=== PATIENT | female | born 1960 | race Caucasian/White ===

== ENCOUNTER 2016-09-28 05:36 | Inpatient (IN) | payer OTHER ==
[2016-09-28] VITALS (30 sets, daily range): BP systolic 98–176; BP diastolic 48–86; PULSE 57–90; RESP 14–20; TEMP 96.2–98.5; O2SAT 74–100; Ht 154.3 cm; Wt 111.1 kg
[~2016-09-28] VITALS: Ht 154.3 cm; Wt 111.1 kg
[~2016-09-28 05:36] MED LIST: CHOL50006 PO; HYDR25TA PO; IRBE300T40 PO; METO50TA5 PO; MULT-1063 PO; NAPR220C11 PO; OMEP40CA52 PO; SENN1TAB79 PO; TOLT4CAP PO; TRAM50TA4 PO
--- OUTSIDE RECORDS SUMMARY | 2016-09-28 05:41 | XMS REPORT | Continuity of Care Document ---
Author Author [facility] Organization [facility] Address Unknown Phone Unavailable Support Name Relationship Address Phone SANDIE ZHOU MD Caregiver [address] [place] [address] Unavailable SANDIE ZHOU MD Caregiver [address] [place] [address] Unavailable SHUKRI YOUNG DO Caregiver [address] [place] [address] Unavailable VENKAT CARPIO Next Of Kin [address] [facility] [place], [place] [id number] Insurance Providers Guarantor Julieth Carpio Address [address] [place] [address] Email [email or web address] Payer [employer] Policy Number [id number] Subscriber's Name Venkat Carpio Relationship 01 Spouse Group Number [id number] Advance Directives Directive Response Recorded Date/Time Ordered Resuscitation Status Full Code 05/10/16 5:11pm Resuscitation Documents on File No 05/11/16 10:19am DPOA for Healthcare Only No 05/11/16 10:19am Living Will No 05/11/16 10:19am Problems Active Problems Medical Problem Onset Date Status Avascular necrosis of bone of right hip Unknown Degenerative arthritis of hip Unknown Degenerative arthritis of right knee Unknown Chronic Past Problems Medical Problem Onset Date Nausea & vomiting Unknown Medications Current Home Medications Medication Dose Units Route Directions Days Qty Instructions Start Date Acetaminophen (Tylenol) 325 Mg Tablet 650 Mg Oral Four Times Daily 100 Tablet 05/12/16 Aspirin (Aspirin Ec) 325 Mg Tablet. 325 Mg Oral Twice A Day 84 Tablet 05/12/16 Cholecalciferol (Vitamin D3) 5,000 Unit Capsule 5,000 Unit Oral Daily 06/10/15 Hydrochlorothiazide 25 Mg Tablet 25 Mg Oral Give With Breakfast 06/10/15 Irbesartan (Avapro) 300 Mg Tablet 300 Mg Oral Daily 11/26/15 Metoprolol Tartrate 50 Mg Tablet 50 Mg Oral Daily 11/26/15 Multivitamin (One Daily Multivitamin) 1 Each Tablet 1 Tab Oral Daily 06/10/15 Omeprazole 40 Mg Capsule.dr 40 Mg Oral Twice A Day 06/10/15 Oxycodone Hcl 5 Mg Tablet 5-15 Mg Oral Every 3 Hours as needed for Breakthrough Pain 60 Tablet 05/12/16 Polyethylene Glycol 3350 (Healthylax) 17 Gm Powd.pack 17 Gm Oral Daily 30 Packet 05/12/16 Past Home Medications Medication Directions Ordered Status Acetaminophen 325 Mg Tablet, 650 Mg Oral Four Times Daily as needed for Pain 05/03/16 Discontinued Acetaminophen (Tylenol Extra Strength) 500 Mg Tablet, 1-2 Tab Oral Every 6 Hours as needed for Pain 11/26/15 Discontinued Acetaminophen (Arthritis Pain Relief) 650 Mg Tablet.er, 650 Mg Oral Twice A Day 06/10/15 Discontinued Aspirin 81 Mg Tab.chew, 81 Mg Oral Daily 05/03/16 Discontinued Oxycodone Hcl 5 Mg Tablet, 5-10 Mg Oral Every 4 Hours for Pain 05/03/16 Discontinued Tramadol Hcl (Ultram) 50 Mg Tablet, 50-100 Mg Oral Every 4 Hours as needed for Pain 12/17/15 Discontinued Social History Social History Problem Response Recorded Date/Time Onset Date Status Reason for Hospitalization Right ALEXUS 05/12/2016 2:31pm Not Applicable Not Applicable Chewing Tobacco Status No 05/11/2016 10:30am Not Applicable Not Applicable Hx Substance Use No 05/11/2016 10:30am Not Applicable Not Applicable Hx Alcohol Use Y weekly 05/11/2016 10:30am Not Applicable Not Applicable Has the pt used tobacco in the last 12 months No 05/11/2016 10:30am Not Applicable Not Applicable Query Response Start Date Stop Date Smoking Status Never smoker Hospital Discharge Instructions Instructions: Care Instructions: Reason for Hospitalization: Right ALEXUS I was in the hospital because (patient own words): GETTING A NEW HIP Discharge Diet: Resume normal diet as tolerated Discharge Activity: Continue the exercises you were given in the hospital three times a day. Your therapist will provide you with a home therapy program prior to your hospital discharge. As you feel stronger, increase the number of repetitions you do in each session. Please check with us before you swim, use a whirlpool, drive or ride a bicycle. Follow Up Appointments: Follow up as scheduled Pending Lab / Results: No Pending Lab Patient Instructions: Driving may be resumed once you are no longer taking narcotic medications and feel you can safely operate the vehicle. You may wish to practice in an empty parking lot at first. Keep in mind that your reaction time will be delayed for up to 6 weeks after surgery. Contact your surgeon for antibiotics to take before having dental work. Wound/Incision Care: In most cases, a Mepilex dressing will be placed at the time of surgery. This dressing will not need to be covered while showering. Leave dressing in place until your follow-up appointment as long as it remains clean, dry and stuck down well around the edges. Call your Doctor if you encounter a problem with your dressing. Please avoid submerging your incision until it is completely healed, once the Mepilex dressing is removed. This includes bathtubs, swimming pools, and hot tubs. DO NOT USE ALCOHOL, PEROXIDE, OR OINTMENTS of any kind on your incision. Pain Scale Utilized to Educate Patient: 0-10 Pain Scale Pain Management/Treatment: Ice packs may be used, and will also help with the pain. You will be given a prescription for pain. Expected Signs/Symptoms: Some swelling around the incision, as well as in your feet and legs is normal. To help with this, elevate your feet on a footstool when sitting in a chair, and do the ankle pumps and circles whenever you are sitting still. Muscle action helps to move collected fluid out of the tissues and improve circulation. Ice packs may be used, and will also help with the pain. Report any persistent swelling, calf tenderness, increase in pain, or pain in the calf with warmth, or redness to your doctor. Notify Physician If: Report any complications to my office immmediately. This includes excessive bleeding, wound breakdown, redness around the wound, uncontrolled pain, or fever over 101 on 3 different measurements. Eat a balanced diet and get plenty of rest. During Business Hours:: If you have any questions or concerns, please call during regular office hours ([phone]). After Business Hours:: If you have any problems or need to reach a physician after hours or on the weekend please call the hospital's main number [phone] to have your physician paged. Condition at time of discharge: Good Plan of Care Discharge Date 05/12/16 3:05pm Disposition 01 DISCHARGED HOME, SELF-CARE Instructions/Education Provided [facility] Postop Instructions YOUSIF Zhou General Instructions Prescriptions See Medication Section Additional Instructions/Education FOLLOW UP WITH DR ZHOU 12-7- @ 10:45AM [facility] ON 05-14-2016 AT 11:20AM FOR PHYSICAL THERAPY EVAL. PHONE Care Plan and Goals See Discharge Instructions Section Functional Status Query Response Date Recorded Mobility Status Ambulatory w/assist May 12, 2016 2:31pm Assistive Devices Front Wheeled Walker May 12, 2016 2:31pm Activity Limitations Weakness Pain May 12, 2016 2:31pm Feeding Ability Independent May 12, 2016 2:31pm Toileting Ability Independent May 12, 2016 2:31pm Grooming Ability Independent May 12, 2016 2:31pm Dressing Ability Independent May 12, 2016 2:31pm Driving Ability Dependent May 12, 2016 2:31pm Housework Ability Assist May 12, 2016 2:31pm Meal Preparation Ability Assist May 12, 2016 2:31pm Stair Climbing Ability Assist May 12, 2016 2:31pm Ability to complete ADL's impeded by No change May 12, 2016 2:31pm Cognitive/Perceptual Impairments Impaired vision May 12, 2016 2:31pm Visual Assistive Devices Glasses May 11, 2016 6:50pm Allergies, Adverse Reactions, Alerts Allergen Type Severity Reaction Status Last Updated Tetracycline Allergy Mild RASH Active 10/14/08 Erythromycin base Allergy Mild RASH Active 10/14/08 Immunizations Query Response on File Recorded Date/Time Hx Influenza Vaccination Y 04-21-16 05/11/16 10:30am Hx Pneumococcal Vaccination No 05/11/16 10:30am Hx Influenza Vaccination Y 04-21-16 05/11/16 10:30am Influenza Vaccine Hx 2015 05/12/16 2:35pm Vital Signs Acute Vital Signs Vital Response Date/Time Temperature (Fahrenheit) 97.0 deg F (96.8 - 99.1) 05/12/2016 12:15pm Temperature (Calculated Celsius) 36.58933 degrees C (36.0 - 37.3) 05/12/2016 12:15pm Temperature Source Oral 05/11/2016 8:45pm Pulse Rate (adult) 90 bpm (60 - 100) 05/12/2016 12:15pm Respiratory Rate 20 breaths/min (10 - 20) 05/12/2016 12:15pm O2 Sat by Pulse Oximetry 91 % (90 - 100) 05/12/2016 12:15pm Oxygen Delivery Method Room Air 05/11/2016 8:45pm Oxygen Delivery Method Room Air 05/12/2016 12:15pm Oxygen Flow Rate 2.00 L/min 05/11/2016 4:50pm Fraction of Inspired Oxygen (FIO2) 21 % 05/11/2016 8:14pm Blood Pressure 124/64 mm Hg 05/12/2016 12:15pm Blood Pressure Source Automatic Cuff 05/12/2016 12:15pm Height (Feet) 5 feet 05/11/2016 9:59am Height (Inches) 5.50 inches 05/11/2016 9:59am Weight (Kilograms) 107.400 kg 05/11/2016 9:59am Body Mass Index (BMI) 38.8 05/11/2016 9:59am Results Laboratory Results Test Name Result Units Flags Reference Collection Date/Time Result Date/ Time Comments White Blood Count 6.7 T/MM3 4.5-11.0 05/12/2016 4:54am 05/12/2016 6: 36am Red Blood Count 3.97 M/MM3 L 4.00-5.20 05/12/2016 4:54am 05/12/2016 6: 36am Hemoglobin 11.1 GM/DL L 12-16 05/12/2016 4:54am 05/12/2016 6:36am Hematocrit 34.1 % L 36-46 05/12/2016 4:54am 05/12/2016 6:36am Mean Corpuscular Volume 85.9 UM3 80-100 05/12/2016 4:54am 05/12/2016 6: 36am Mean Corpuscular Hemoglobin 28.0 UUG 26-34 05/12/2016 4:54am 2015 6:36am Mean Corpuscular Hemoglobin Concent 32.6 GM/DL 31-37 05/12/2016 4:54am 05/12/2016 6:36am RDW Standard Deviation 45.1 FL 36.9-50.2 05/12/2016 4:54am 05/12/2016 6 :36am Platelet Count 194 T/MM3 D 130-400 05/12/2016 4:54am 05/12/2016 6:37am Mean Platelet Volume 9.7 UM3 9.4-12.4 05/12/2016 4:54am 05/12/2016 6: 36am Icterus Index < 2 0-7 05/12/2016 4:54am 05/12/2016 5:39am Chemistry Specimen Hemolysis 76 H 0-25 05/12/2016 4:54am 05/12/2016 5: 39am 71-285: Specimen Exhibited Moderate Hemolysis - can falsely elevate K (Potassium), Troponin I, CA 19-9, PTH, CSF Glucose, Urine Protein, and can falsely decrease Phenytoin. Turbidity < 20 0-20 05/12/2016 4:54am 05/12/2016 5:39am Sodium Level 139 MEQ/L 134-144 05/12/2016 4:54am 05/12/2016 5:39am Potassium Level 4.7 MEQ/L 3.6-5 05/12/2016 4:54am 05/12/2016 5:39am Chloride Level 104 MEQ/L 98-107 05/12/2016 4:54am 05/12/2016 5:39am Carbon Dioxide Level 24 MEQ/L 22-30 05/12/2016 4:54am 05/12/2016 5: 39am Anion Gap 11 MEQ/L 5-15 05/12/2016 4:54am 05/12/2016 5:39am Blood Urea Nitrogen 19.0 MG/DL H 7-17 05/12/2016 4:54am 05/12/2016 5: 39am Creatinine 0.7 MG/DL 0.7-1.2 05/12/2016 4:54am 05/12/2016 5:39am BUN/Creatinine Ratio 27 RATIO H 6-26 05/12/2016 4:54am 05/12/2016 5: 39am Glomerular Filtration Rate Calc 86 05/12/2016 4:54am 05/12/2016 5: 39am Glucose Level 113 MG/DL H 65-110 05/12/2016 4:54am 05/12/2016 5:39am Calculated Osmolality 271 MOSM/KG 261-280 05/12/2016 4:54am 05/12/2016 5:39am Calcium Level 8.9 MG/DL 8.4-10.2 05/12/2016 4:54am 05/12/2016 5:39am Neutrophils (%) (Auto) 63.6 % 33-66 05/03/2016 4:20pm 05/03/2016 4: 25pm Lymphocytes (%) (Auto) 31.6 % 23-45 05/03/2016 4:20pm 05/03/2016 4: 25pm Monocytes (%) (Auto) 4.1 % 0-9.0 05/03/2016 4:20pm 05/03/2016 4:25pm Eosinophils (%) (Auto) 0.2 % 0-4 05/03/2016 4:20pm 05/03/2016 4:25pm Basophils (%) (Auto) 0.0 % 0-2 05/03/2016 4:20pm 05/03/2016 4:25pm Immature Granulocyte % (Auto) 0.5 % 0.0-0.5 05/03/2016 4:20pm 2015 4:25pm Absolute Neutrophils (auto) 2.6 T/MM3 1.8-7.7 05/03/2016 4:20pm 2015 4:25pm Absolute Lymphocytes (auto) 1.3 T/MM3 1-4.8 05/03/2016 4:20pm 2015 4:25pm Absolute Monocytes (auto) 0.2 T/MM3 0-0.8 05/03/2016 4:20pm 05/03/2016 4:25pm Absolute Eosinophils (auto) 0.0 T/MM3 0-0.5 05/03/2016 4:20pm 2015 4:25pm Absolute Basophils (auto) 0.0 T/MM3 0-0.2 05/03/2016 4:20pm 05/03/2016 4:25pm Absolute Immature Granulocyte (auto 0.02 T/MM3 0.00-0.03 05/03/2016 4: 20pm 05/03/2016 4:25pm D-Dimer 721 NG/ML H 0-230 05/03/2016 4:20pm 05/03/2016 6:05pm <230 NG/ ML D-DU=PRESUMPTIVE NEGATIVE FOR PE OR DVT >230 NG/ML D-DU=ADDITIONAL EVAL FOR PE OR DVT RECOMMENDED Total Bilirubin 1.40 MG/DL H 0.20-1.30 05/03/2016 4:20pm 05/03/2016 5: 13pm Alkaline Phosphatase 154 U/L H 38-126 05/03/2016 4:20pm 05/03/2016 5: 13pm Total Protein 8.1 G/DL 6.3-8.2 05/03/2016 4:20pm 05/03/2016 5:13pm Albumin 5.0 G/DL 3.5-5.0 05/03/2016 4:20pm 05/03/2016 5:13pm Globulin 3.1 G/DL 2.4-3.6 05/03/2016 4:20pm 05/03/2016 5:13pm Albumin/Globulin Ratio 1.6 RATIO 1.1-2.2 05/03/2016 4:20pm 05/03/2016 5 :13pm Aspartate Amino Transf (AST/SGOT) 41 U/L H 14-36 05/03/2016 4:20pm 05/03 5:13pm Alanine Aminotransferase (ALT/SGPT) 44 U/L 9-52 05/03/2016 4:20pm 05/03 5:13pm Troponin I < 0.012 ng/ml 0-0.12 05/03/2016 4:20pm 05/03/2016 5:25pm Troponin values with a difference of 55% increase from orginal troponin value represent a true biological DELTA value. (%increase Calc=Orginal Troponin value, divided by subsequent Troponin value, multiplied by 100) Lipase 104 U/L 23-300 05/03/2016 4:20pm 05/03/2016 5:13pm Urine Collection Type CLEANCATCH-MIDSTREAM 05/03/2016 6:31pm 2015 6:35pm Urine Color YELLOW YELLOW 05/03/2016 6:31pm 05/03/2016 6:35pm Urine Turbidity CLEAR CLEAR 05/03/2016 6:31pm 05/03/2016 6:35pm Urine Specific Tobias 1.025 1.015-1.025 05/03/2016 6:31pm 2015 6:35pm Urine pH 7.0 5.0-8.0 05/03/2016 6:31pm 05/03/2016 6:35pm Urine Leukocyte Esterase 1+ A NEGATIVE 05/03/2016 6:31pm 05/03/2016 6: 35pm Urine Nitrite NEGATIVE NEGATIVE 05/03/2016 6:31pm 05/03/2016 6:35pm Urine Protein NEGATIVE NEGATIVE 05/03/2016 6:31pm 05/03/2016 6:35pm Urine Glucose (UA) NEGATIVE NEGATIVE 05/03/2016 6:31pm 05/03/2016 6: 35pm Urine Ketones TRACE A NEGATIVE 05/03/2016 6:31pm 05/03/2016 6:35pm Urine Urobilinogen 0.2 EU/DL NORMAL 05/03/2016 6:31pm 05/03/2016 6: 35pm Urine Bilirubin NEGATIVE NEGATIVE 05/03/2016 6:31pm 05/03/2016 6: 35pm Urine Blood NEGATIVE NEGATIVE 05/03/2016 6:31pm 05/03/2016 6:35pm Urine WBC 1-3 /HPF 0-5 05/03/2016 6:31pm 05/03/2016 6:54pm Urine RBC 0-1 /HPF 0-3 05/03/2016 6:31pm 05/03/2016 6:54pm Urine Squamous Epithelial Cells 0-5 05/03/2016 6:31pm 05/03/2016 6: 54pm Urine Bacteria TRACE H NEGATIVE 05/03/2016 6:31pm 05/03/2016 6:54pm Urine Mucus PRESENT 05/03/2016 6:31pm 05/03/2016 6:54pm Urine Culture Indicated CULT NOT INDICATED 05/03/2016 6:31pm 2015 6:54pm Name: JULIETH CARPIO Unit #: [id number] : 1960 Sex: F Admit Date: 05/11/16 Loc / Svc: SRG Discharge Date: DIAGNOSTIC IMAGING REPORT Report #: [id number] [facility] CARIDAD Gomez Indication: ITS.REASON: POSTOP right hip replacement PROCEDURE: PELVIS W/1 VIEW RT HIP: Encounter: Initial Comparison: November 17, 2012 Findings: Postoperative changes of right total hip replacement are seen. There is expected postoperative subcutaneous gas. No evidence of hardware failure or acute fracture. No retained radiopaque surgical instruments or sponges seen. Severe degenerative change in the contralateral left hip. Impression: New right total hip prosthesis without evidence of immediate complication. . Procedures Procedure Status Date Provider(s) HYDRATE IV INFUSION ADD-ON Completed 05/03/16 THER/PROPH/DIAG INJ IV PUSH Completed 05/03/16 TX/PRO/DX INJ NEW DRUG ADDON Completed 05/03/16 TX/PRO/DX INJ NEW DRUG ADDON Completed 05/03/16 Total hip arthroplasty Completed 05/11/16 SANDIE ZHOU MD Encounters Encounter Location Arrival/Admit Date Discharge/Depart Date Attending Provider Discharged Inpatient [facility] 05/11/16 9:28am 05/12/16 3:05pm SANDIE ZHOU MD Departed Emergency Room [facility] 05/03/16 3:57pm 05/03/16 10: 17pm ELIAS MANN MD Registered Clinic [facility] 04/06/16 9:38am MELLISA DOAN MD Registered Clinic [facility] 03/17/16 11:20am MELLISA DOAN MD Registered Clinic [facility] 03/10/16 5:06pm MELLISA DOAN MD Registered Clinic [facility] 03/04/16 3:11pm MELLISA DOAN MD Registered Clinic [facility] 03/04/16 3:09pm [facility] Registered [facility] 02/23/16 2:50pm SHUKRI YOUNG DO
[2016-09-28] MEDS ORDERED: METOCLOPRAMIDE 10mg/2ml INJECTION IV ONE (06:00)
[2016-09-28] MEDS ORDERED: FAMOTIDINE 20mg IVPB 50 ML IV ONE (06:00)
[2016-09-28] MEDS ORDERED: LIDOCAINE 1% (10mg/ml) 2ml SDV SQ ONE (06:00)
[2016-09-28 06:13] LABS: ANION GAP 13 MEQ/L (5-15); BUN/CREATININE RATIO 25 RATIO (6-26); CALCIUM 9.3 MG/DL (8.4-10.2); CHLORIDE 103 MEQ/L (98-107); CO2 - CARBON DIOXIDE 28 MEQ/L (22-30); CREATININE 0.8 MG/DL (0.7-1.2); GLOMERULAR FILTRATION RATE 74; GLUCOSE 104 MG/DL (65-110); SODIUM 144 MEQ/L (134-144)
--- NOTE | 2016-09-28 06:49 | ANESPREOP ---
Anesthesia Record Date and Time DATE: 09/28/16 TIME: 06:46 Proposed Surgical Procedure LT ALEXUS NPO since: mn solid food; 0500 sip of water with meds Allergies: Coded Allergies: erythromycin base (Verified Allergy, Mild, RASH, 09/28/16) tetracycline (Verified Allergy, Mild, RASH, 09/28/16) Ht/Wt/BMI Height: 5 ' 0.75 " Weight: 110.100 kg BMI: 46.2 kg/m2 Vital Signs Date Time Temp Pulse Resp B/P Pulse Ox O2 Delivery O2 Flow Rate FiO2 09/28/16 05:55 98.5 90 16 176/86 93 Room Air Medications Inpatient Medications Current Medications Medications (Trade) Dose Ordered Sig/Madelin Start Time Stop Time Status Last Admin Dose Admin Lactated Ringer's (Lactated Ringers) 1,000 ml @ 50 mls/hr Q20H 09/28/16 07:00 09/28/16 06:41 50 MLS/HR Cholecalciferol (Vitamin D3) 5,000 Unit Capsule, 5,000 UNIT PO DAILY, (Reported) Last Taken: on Unknown Date & Time Hydrochlorothiazide (Hydrochlorothiazide ) 25 Mg Tablet, 25 MG PO WB, (Reported) Last Taken: on 09/27/16929 Irbesartan (Avapro) 300 Mg Tablet, 300 MG PO DAILY, (Reported) Last Taken: on 09/27/16929 Metoprolol Tartrate (Metoprolol Tartrate) 50 Mg Tablet, 50 MG PO DAILY, (Reported) Last Taken: on 09/28/16 050 Multivitamin (One Daily Multivitamin) 1 Each Tablet, 1 TAB PO DAILY, (Reported) Last Taken: on 09/27/16929 Naproxen Sodium (Aleve) 220 Mg Capsule, 2 CAP PO BID PRN for PAIN, (Reported) Last Taken: on 09/21/16 Omeprazole (Omeprazole) 40 Mg Capsule.dr, 40 MG PO BID, (Reported) Last Taken: on 09/28/16 050 Sennosides/Docusate Sodium (Senna S Tablet) 1 Each Tablet, 1 TAB PO QOD PRN for CONSTIPATION, (Reported) Last Taken: on 09/27/16929 Tolterodine Tartrate (Detrol LA) 4 Mg Cap.er.24h , 4 MG PO DAILY, (Reported) Last Taken: on 09/27/16 0930 Tramadol HCl (Tramadol HCl) 50 Mg Tablet, 50 MG PO Q6HR PRN for PAIN, (Reported) Take 1 tablet, by mouth, every 6 hours. Last Taken: on 09/27/161999 Currently on Beta Lynn: Yes Beta Lynn Last Taken: 09/28/16 0500 Medical/Surgical History Anesthesia PMH: Reports: *Hypertension, Anesthesia Reactions (N&V; NO KNOWN AIRWAY ISSUES-REQUESTING SPINAL TO AVOID ET TUBE), Arthritis (LT KNEE, HIPS), Obesity (morbidly obese), Reflux (CONTROLLED), Sleep Apnea (WEARS CPAP) Smoking Status: Never smoker Use Chewing Tobacco?: No Second Hand Exposure: No Substance Use Type: does not use Alcohol Intake: none HX of Last Menstrual Period: HYST Past Surgical History Orthopedic Surgeries: Yes - VALDO CTR; RT KNEE SCOPE; RT TKA; RT ALEXUS Abdominal Surgeries: Yes Genitourinary Surgeries: Cardiac Surgeries: Endocrine Surgeries: Reproductive Surgeries: Yes - OBDULIO /BSO Neurological Surgeries: Ear Surgeries: Nose Surgeries: Throat Surgeries: Yes - T&A Other Surgeries: - WISDOM TEETH; colonscopy Anesthesia Adverse Reactions: FOUND none, FOUND other Pertinent Findings Laboratory Tests 09/28/16 06:00 EKG Rhythm: Sinus Rhythm Physical Exam Respiratory: Bilat breath sounds equal, Lungs clear Cardiovascular: FOUND Regular rate, rhythm Airway Assessment Mallampati Score: III TMD: 3 Fingerbreadths Neck Extension: Fair Overall Assessment: No Airway Concerns ASA: 3 Plan Anesthesia Plan: GETA Regional: Spinal Discussion Discussed risks/options/alternatives of anesthesia and questions answered. Patient consents. Nursing pain assessment noted. Present: Family Member Attestation Statement Prior to the delivery of any anesthetic medication, I examined the patient, developed the plan, obtained the patient's consent and discussed the risk and benefits of the procedure with the patient/guardian. DARRYN MAYORGA CRNA Sep 28, 2016 06:49
[2016-09-28] MEDS ORDERED: PROPOFOL 500mg 50 ML IV ONE (06:57)
[2016-09-28] MEDS ORDERED: KETAMINE 500mg/10ml INJECTION ONE (06:58)
[2016-09-28] MEDS ORDERED: MIDAZOLAM 2mg/2ml INJECTION ONE (06:58)
[2016-09-28] MEDS ORDERED: LR 1,000 ML IV SCH (07:00)
[2016-09-28] MEDS ORDERED: ACETAMINOPHEN 500 MG TABLET PO ONE (07:00)
[2016-09-28] MEDS ORDERED: ONDANSETRON 4mg/2ml INJECTION IV ONE (07:00)
[2016-09-28] MEDS ORDERED: NOZIN NASAL SWAB NS ONE ×2 (07:00→09:15)
[2016-09-28] MEDS ORDERED: VANCOMYCIN 1 GRAM INJECTION ONE (07:07)
[2016-09-28] MEDS ORDERED: FENTANYL 100mcg/2ml INJECTION ONE (07:17)
[2016-09-28] MEDS ORDERED: CEFAZOLIN 2 GM VIAL IV ONE (07:30)
[2016-09-28] MEDS ORDERED: TRANEXAMIC ACID 1,000 MG in NORMAL SALINE 100 ML IV ONE ×2 (07:30→08:30)
[2016-09-28] MEDS ORDERED: EPHEDRINE SULFATE 50mg/ml INJECTION ONE (07:50)
[2016-09-28] MEDS ORDERED: SALINE FLUSH 10ml SYRINGE ONE (08:02)
[2016-09-28] MEDS ORDERED: PHENYLEPHRINE 10mg/ml INJECTION ONE (08:02)
[2016-09-28] MEDS ORDERED: EPINEPHRINE 0.25 MG, BUPIVACAINE 0.25% 75 MG, MORPHINE SULFATE 15 MG, KETOROLAC 60 MG i... INJ ONE ×5 (08:30)
[2016-09-28] MEDS ORDERED: PROPOFOL 200mg 20 ML IV ONE (08:56)
[2016-09-28] MEDS ORDERED: ONDANSETRON 4mg/2ml INJECTION IV PRN ×2 (09:00→09:15)
--- NOTE | 2016-09-28 09:00 | PDOPERATE ---
Operative Report Date of Operation 09/28/16 Side: Left Preoperative Diagnosis: hip primary DJD Postoperative Diagnosis Same as preoperative diagnosis. Operation/Procedure: total hip arthroplasty (left) Surgeon Tino Zhou MD Anchor Tack Puller SOUMYA Hernandez Complications None. Regional Block: Spinal Estimated Blood Loss See Anesthesia Record. Fluids Please See Anesthesia Record. Description of Operation Ms. Carter and her left hip were identified and marked in the the preoperative holding area. She was then brought back to the operating suite and proper anesthesia was administered. She was then positioned lateral on the operating table. The left lower extremity was then prepped and draped in my normal sterile fashion. Timeout was performed with all operating room personnel. A posterior approach was utilized. Approximately 15 cm incision was made in the skin and dissection carried down to the muscle fascia which was then split in line with skin incision. Charnley retractor was placed and the short external rotators were identified and tagged and detached. Capsulotomy was performed and the hip dislocated. A femoral neck osteotomy was performed approximately 1 cm proximal to the lesser trochanter. The head was removed and acetabulum exposed. Labrum was removed. He had large anterior superior tear. I then sequentially reamed to a size 51 and placed a 52 cup in 20 of anteversion. A liner was then placed. The proximal femur was exposed and prepared with a cookie cutter followed by broaching to a size for. With a 0 head she had excellent stability and range of motion. Leg lengths felt good. After thorough irrigation a final Accolade 2 size 4 with 127 neck stem was placed. Again trialed to 0 standard head and this felt good. A final standard ceramic 36 mm head was placed and the hip reduced. Betadine solution was allowed to sit in the wound for 3 minutes and fully irrigated out with normal saline. Joint cocktail was injected throughout soft tissue. The capsulotomy was repaired with Ethibond. Short external rotators were also repaired with Ethibond. 1 g of vancomycin powder was placed into the wound. The muscle fascia was then repaired with #1 Vicryl. I then left my system to close the subcutaneous tissue with 2-0 Vicryl followed by running 4-0 Monocryl skin followed by Dermabond and a sterile dressing. The patient with any placed back into supine position and taken to recovery room in the care of anesthesia. SANDIE ZHOU MD Sep 28, 2016 09:00
[2016-09-28] MEDS ORDERED: DiphenhydrAMINE 25 MG CAPSULE PO PRN (09:15)
[2016-09-28] MEDS ORDERED: INSULIN LISPRO 100 UNIT/ML SQ PRN (09:15)
[2016-09-28] MEDS ORDERED: METOCLOPRAMIDE 10mg/2ml INJECTION IV PRN (09:15)
[2016-09-28] MEDS ORDERED: LORAZEPAM 1 MG TABLET PO PRN (09:15)
[2016-09-28] MEDS ORDERED: TRAMADOL 50 MG TABLET PO PRN (09:15)
[2016-09-28] MEDS ORDERED: DiphenhydrAMINE 50 MG/ML INJECTION IV PRN (09:15)
[2016-09-28] MEDS ORDERED: PRN ORDERS MC (09:15)
[2016-09-28] MEDS ORDERED: SENNOSIDES 8.6 MG TABLET PO PRN (09:15)
[2016-09-28] MEDS ORDERED: HYDROMORPHONE 2mg/ml INJECTION ONE (09:17)
[2016-09-28] MEDS: HYDROMORPHONE 2mg/ml INJECTION IV PRN ×2 (09:41→10:03)
--- NOTE | 2016-09-28 10:07 | ANESPO ---
Post-Op Note Date 09/28/16 Time: 10:05 Status Pt Participated in Evaluation: Pt participated in person Vital Signs Date Time Temp Pulse Resp B/P Pulse Ox O2 Delivery O2 Flow Rate FiO2 09/28/16 10:03 14 09/28/16 10:00 62 112/63 99 Room Air 09/28/16 09:20 96.9 Respiratory Function: Airway patent, Regular respirations Cardiovascular Function: Regular pulse Mental Status: Alert/oriented Pain Level Intensity: 6 Unable to Assess Pain Due To: INTRA OP Hydration: IV infusing Complications during Recovery None apparent Follow-Up Instructions Instructions Per Surgeon DARRYN MAYORGA CRNA Sep 28, 2016 10:07
--- NOTE | 2016-09-28 10:17 | DI ---
Indication: ITS.REASON: POSTOP left hip replacement PROCEDURE: PELVIS W/1 VIEW LT HIP: Encounter: Initial Comparison: May 11, 2016 Findings: Postoperative changes of left total hip replacement are seen. There is expected postoperative subcutaneous gas. No evidence of hardware failure or acute fracture. No retained radiopaque surgical instruments or sponges seen. Existing right total hip prosthesis appears unchanged. Impression: New left total hip prosthesis without evidence of immediate complication. .
--- NOTE | 2016-09-28 10:35 | NUR ---
ARRIVAL TO FLOOR PT ARRIVED TO FLOOR AT THIS TIME. PT WAS ABLE TO TRANSFER SELF FROM THE CART TO THE BED WITH MINIMAL ASSIST. PT VITAL SIGNS STABLE AT THIS TIME. WILL CONTINUE TO MONITOR PT'S POST OP VITALS AND OXYGEN LEVELS. PT IS RESTING IN BED, FAMILY AT BEDSIDE, RECEIVED ORDER FOR ROXICODONE FROM SOUMYA SUAREZ. WILL CONTINUE TO MONITOR PAIN.
[2016-09-28] MEDS: NORMAL SALINE 1,000 ML IV SCH (10:46)
[2016-09-28] MEDS: OXYCODONE I.R. 5 MG TABLET PO PRN ×3 (11:35→19:36)
[2016-09-28] MEDS: NAPROXEN 220 MG TABLET PO PRN (13:23)
[2016-09-28] MEDS: ACETAMINOPHEN 325 MG TABLET PO SCH ×3 (13:24→21:47)
[2016-09-28] MEDS: NOZIN NASAL SWAB NS SCH ×2 (14:55→21:45)
[2016-09-28] MEDS: CEFAZOLIN 2 G in NORMAL SALINE 100 ML IV SCH ×2 (14:56→22:58)
--- NOTE | 2016-09-28 17:57 | NUR ---
PROGRESS NOTE PT IS ALERT AND ORIENTED X3. VITAL SIGNS STABLE, PT HAS BEEN WEENED FROM 2L OF 02 TO RA THIS SHIFT SINCE ARRIVAL TO THE FLOOR. PT HAD DECREASED O2 SATS UPON ARRIVAL TO THE FLOOR BUT HAS BEEN SATTING IN THE 90S ON RA AND WILL BE MONITORED WITH CONTINUOUS PULSE OXIMETRY THROUGHOUT THE NIGHT. THE PT HAS WORKED WITH PHYSICAL THERAPY AND HAS WALKED THE HALLS X1 THIS SHIFT. PT IS A X1 ASSIST WITH GAITBELT AND WALKER. THE PT HAS EATEN LUNCH AND IS UP IN THE RECLINER AT THIS TIME EATING DINNER, TOLERATING FOOD WELL WITHOUT ANY NAUSEA THIS SHIFT. THE PT HAS VOIDED, WITH ADEQUATE URINE OUTPUT. PT HAS BEEN HAVING DIFFICULTY WITH PAIN CONTROL AND HAS RECEIVED SEVERAL DOSES OF PRN ROXICODONE AND ONE DOSE OF NAPROXEN. THE PT IS ACCOMPANIED BY HER MOTHER IN THE ROOM AT THIS TIME, CALL LIGHT IS WITHIN REACH, NO CONCERNS NOTED. WILL CONTINUE TO MONITOR.
[2016-09-28] MEDS: ASPIRIN *EC* 325mg TABLET PO SCH (21:46)
[2016-09-28] MEDS: OMEPRAZOLE 20 MG CAPSULE PO SCH (21:46)
[2016-09-28] MEDS ORDERED: SENNOSIDES 8.6 MG TABLET PO SCH (22:00)
[2016-09-29] VITALS (7 sets, daily range): BP systolic 107–153; BP diastolic 59–109; PULSE 62–77; RESP 12–20; TEMP 96.9–97.8; O2SAT 92–95
[2016-09-29] MEDS: OXYCODONE I.R. 5 MG TABLET PO PRN ×4 (00:05→14:46)
[2016-09-29] MEDS: NORMAL SALINE 1,000 ML IV SCH (00:08)
--- NOTE | 2016-09-29 05:43 | NUR ---
SHIFT SUMMARY PATIENT IS ALERT AND ORIENTED X3 THIS SHIFT. VITAL SIGNS STABLE ON 1L NC. PATIENT WAS PREVIOUSLY ON RA, BUT CONT. PULSE OX REVEALED PATIENT'S O2 DECLINING IN TO 80S WHILE ASLEEP. WE ATTEMPTED TO DETERMINE WHY CPAP WAS NOT WORKING PROPERLY, BUT WERE UNABLE. PATIENT IS UP WITH STANDBY AND AMBULATES WELL. PATIENT HAS REPORTED MINIMAL PAIN THAT HAS BEEN RELIEVED BY PO PAIN MEDS. NO NAUSEA OR VOMITING THIS SHIFT. WILL CONTINUE TO MONITOR.
[2016-09-29 05:56] LABS: HCT - HEMATOCRIT 33.2 % (36-46); HGB - HEMOGLOBIN 10.3 GM/DL (12-16); MEAN CORPUSCULAR HGB 25.5 UUG (26-34); MEAN CORPUSCULAR VOLUME 82.2 UM3 (80-100); MEAN PLATELET VOLUME 10.1 UM3 (9.4-12.4); RED BLOOD COUNT 4.04 M/MM3 (4.00-5.20); WBC - WHITE BLOOD COUNT 5.6 T/MM3 (4.5-11.0)
[2016-09-29 06:07] LABS: ANION GAP 8 MEQ/L (5-15); BUN/CREATININE RATIO 23 RATIO (6-26); CALCIUM 8.5 MG/DL (8.4-10.2); CHLORIDE 106 MEQ/L (98-107); CO2 - CARBON DIOXIDE 28 MEQ/L (22-30); CREATININE 0.7 MG/DL (0.7-1.2); GLOMERULAR FILTRATION RATE 86; GLUCOSE 112 MG/DL (65-110); SODIUM 142 MEQ/L (134-144)
[2016-09-29] MEDS: NOZIN NASAL SWAB NS SCH ×2 (06:07→13:08)
[2016-09-29] MEDS: OMEPRAZOLE 20 MG CAPSULE PO SCH (06:07)
[2016-09-29] MEDS ORDERED: HYDROCHLOROTHIAZIDE 25 MG TABLET PO SCH (08:00)
[2016-09-29] MEDS ORDERED: CHOLECALCIFEROL 5,000 UNIT CAPSULE PO SCH (09:00)
[2016-09-29] MEDS ORDERED: POLYETHYL.GLYCOL 3350 PACKET 17gm PO SCH (09:00)
[2016-09-29] MEDS ORDERED: IRBESARTAN 300 MG TABLET PO SCH (09:00)
[2016-09-29] MEDS ORDERED: TOLTERODINE LA 4 MG CAPSULE PO SCH (09:00)
[2016-09-29] MEDS ORDERED: DOCUSATE SODIUM 100 MG CAPSULE PO SCH (09:00)
--- NOTE | 2016-09-29 09:09 | NUR ---
CM CM IN TO VISIT WITH PT. SHE IS ALERT AND ORIENTED. SHE PLANS TO DC HOME. SHE HAS FWW, CANE AND HIP KIT. SHE WILL DO OUTPT PT AT [facility]. SHE IS GIVEN CM CONTACT INFORMATION. PETERE SCORE IS 8. Addendum: 09/29/16 at 0911 by MELLISA REZA RN Amended: Links added.
--- NOTE | 2016-09-29 09:17 | PDORTHOPN ---
Subjective Date DATE: 09/29/16 TIME: 09:12 Subjective Melynnie is doing very well. She has been mobile with good tolerance. Pain is well controlled. No other concerns. Reports some pain in the buttocks and PSIS region like she got "punched". This is possibly from the hard post used for positioning. Objective Vital Signs Vital signs Vital Signs 09/28/16 09/29/16 09/29/16 09/29/16 22:00 00:13 04:34 08:18 Temp 96.9 97.6 97.7 Pulse 72 62 77 Resp 16 12 16 B/P 131/72 127/68 153/109 Pulse Ox 92 95 93 O2 Delivery Nasal Cannula Room Air Nasal Cannula Room Air O2 Flow Rate 1.00 1.00 09/29/16 08:35 Pulse 77 Resp 16 Height (Feet): 5 Height (Inches): 0.75 Weight (Kilograms): 111.100 General General Appearance: No Acute Distress Respiratory (Brief) Respiratory Brief: FOUND: non-labored Cardiovascular (Brief) Cardiac: FOUND: calf easily compressible, calf soft, nontender, pedal pulses intact Musculoskeletal (Brief) Comments Mildly tender in the SI region. No skin changes noted. Surgical Site Incision: FOUND: Mepilex dressing intact, no drainage Integumentary (Brief) Integumentary Brief: FOUND other (No bruising, erythemia or other changes noted in the area that she is having discomfort.) Neurologic (Brief) Neurological Brief: FOUND: extremities w/o deficits, neuro intact Psychiatric (Brief) Psychiatric Brief: FOUND: alert, no acute distress Laboratory Laboratory Laboratory Tests 09/29/16 05:04 Laboratory Tests 09/28/16 06:00 09/29/16 05:04 Assessment & Plan Problems: (1) Degenerative arthritis of hip Status: Chronic Qualifiers: Osteoarthritis type: primary Laterality: left Qualified Codes: M16.12 - Unilateral primary osteoarthritis, left hip Assessment & Plan: Aspirin protocol for VTE prophylaxis. SCD's and mobilization for added DVT coverage. PT/OT services to improve independent function. Discharge Planning per Case Management. (2) MIAH (obstructive sleep apnea) Status: Chronic Assessment & Plan: Her CPAP didn't work last night. Oxygen added at night. Will wean this AM. Hospital Course Summary Disclaimer The visit summary below is not to be considered part of the above Progress Note. RADHA THORNTON Sep 29, 2016 09:15
[2016-09-29] MEDS: ASPIRIN *EC* 325mg TABLET PO SCH (09:20)
[2016-09-29] MEDS: ACETAMINOPHEN 325 MG TABLET PO SCH ×2 (09:21→13:09)
[2016-09-29] MEDS ORDERED: INSULIN ASPART 100 UNIT/ML SQ PRN (10:15)
[2016-09-29] MEDS: NAPROXEN 220 MG TABLET PO PRN (11:51)
[2016-09-29] MEDS ORDERED: ASPI-917 PO (13:00)
[2016-09-29] MEDS ORDERED: ACET-2321 PO (13:00)
[2016-09-29] MEDS ORDERED: OXYC5TAB84 PO (13:00)
[2016-09-29] MEDS ORDERED: POLY17PO6 PO (13:00)
--- NOTE | 2016-09-29 13:47 | DSPDOC ---
General Date Date DATE: 09/29/16 TIME: 13:46 Attending Physician Anam Zhou MD Admitting Physician Anam Zhou MD Consulting Physician Admitting Diagnosis PRIMARY DEGENERATIVE JOINT DISEASE LEFT HIP Discharge Diagnosis Left hip primary DJD Procedures left total hip arthroplasty Diagnosis left hip primary DJD History of Present Illness HPI Elements This patient was admitted for elective surgical tx of end stage degenerative joint disease that failed to respond to conservative treatment. Further details of this is found in the admission H&P. Hospital Course After appropriate preoperative clearance and signing of operative consent, the patient was given IV antibiotics, according to orthopedic protocol. The patient was taken to the operating room and underwent elective joint arthroplasty. Following surgery, antibiotics were discontinued less than 24 hours according to joint protocol. Appropriate anticoagulants were initiated and SCDs added for DVT prevention. The dressing was clean, dry, and intact. Pain control was obtained via multimodal approach. Bowel motivation addressed with scheduled and PRN medications. Early mobilization was initiated through PT services. Discharge arrangements made by a collaborative effort between the patient and Case Management. Follow-up is scheduled in 2-3 weeks. Discharge instructions given by orthopedic providers and nursing staff at discharge. Discharge condition was good. Problems: (1) Degenerative arthritis of hip Status: Chronic Assessment & Plan: Aspirin protocol for VTE prophylaxis. SCD's and mobilization for added DVT coverage. PT/OT services to improve independent function. Discharge Planning per Case Management. (2) MIAH (obstructive sleep apnea) Status: Chronic Assessment & Plan: Her CPAP didn't work last night. Oxygen added at night. Will wean this AM. Associated Postoperative Event: Acute P.O. Anemia Ongoing Care Required?: No Acute P.O. Anemia: Patient received IVF, No intervention required, HGB drop- acceptable range Laboratory Laboratory Tests Test 09/28/16 15:25 09/28/16 20:47 09/29/16 05:04 09/29/16 05:50 Glucometer 92mg/dL 136mg/dL 128mg/dL White Blood Count 5.6T/MM3 Red Blood Count 4.04M/MM3 Hemoglobin 10.3GM/DL Hematocrit 33.2% Mean Corpuscular Volume 82.2UM3 Mean Corpuscular Hemoglobin 25.5UUG Mean Corpuscular Hemoglobin Concent 31.0GM/DL RDW Standard Deviation 45.1FL Platelet Count 182T/MM3 Mean Platelet Volume 10.1UM3 Turbidity < 20 Sodium Level 142MEQ/L Potassium Level 4.0MEQ/L Chloride Level 106MEQ/L Carbon Dioxide Level 28MEQ/L Anion Gap 8MEQ/L Blood Urea Nitrogen 16.0MG/DL Creatinine 0.7MG/DL Glomerular Filtration Rate Calc 86 BUN/Creatinine Ratio 23RATIO Glucose Level 112MG/DL Calculated Osmolality 275MOSM/KG Calcium Level 8.5MG/DL Icterus Index < 2 Chemistry Specimen Hemolysis < 15 Test 09/29/16 10:00 Glucometer 137mg/dL Home Meds Active Scripts Polyethylene Glycol 3350 (Miralax) 17 Gm Powd.pack, 17 G PO DAILY Y for CONSTIPATION, #1 BOTTLE Take 17 Grams (1 capful), by mouth, once a day. Prov:RADHA THORNTON 09/29/16 Oxycodone HCl (Oxycodone HCl) 5 Mg Tablet, 5-15 MG PO Q3H Y for PAIN, #60 TAB Prov:RADHA THORNTON 09/29/16 Aspirin *EC* (Aspirin EC) 325 Mg Tablet., 325 MG PO BID, #84 TAB This medication is for blood clot prevention and is not intended for pain management. Please take this medication twice a day for 6 weeks. Prov:RADHA THORNTON 09/29/16 Acetaminophen (Tylenol) 325 Mg Tablet, 650 MG PO QID, #60 TAB Prov:RADHA THORNTON 09/29/16 Reported Medications Sennosides/Docusate Sodium (Senna S Tablet) 1 Each Tablet, 1 TAB PO QOD Y for CONSTIPATION, TAB 09/27/16 Tolterodine Tartrate (Detrol LA) 4 Mg Cap.er.24h, 4 MG PO DAILY, CAP 09/21/16 Naproxen Sodium (Aleve) 220 Mg Capsule, 2 CAP PO BID Y for PAIN, CAP 09/21/16 Tramadol HCl (Tramadol HCl) 50 Mg Tablet, 50 MG PO Q6HR Y for PAIN, TAB Take 1 tablet, by mouth, every 6 hours. 09/21/16 Irbesartan (Avapro) 300 Mg Tablet, 300 MG PO DAILY 11/26/15 Metoprolol Tartrate (Metoprolol Tartrate) 50 Mg Tablet, 50 MG PO DAILY 11/26/15 Hydrochlorothiazide (Hydrochlorothiazide) 25 Mg Tablet, 25 MG PO WB 06/10/15 Multivitamin (One Daily Multivitamin) 1 Each Tablet, 1 TAB PO DAILY 06/10/15 Cholecalciferol (Vitamin D3) 5,000 Unit Capsule, 5000 UNIT PO DAILY 06/10/15 Omeprazole (Omeprazole) 40 Mg Capsule.dr, 40 MG PO BID 06/10/15 Discharge Disposition Please refer to Case Management Notes for patient's disposition. Estimated Blood Loss 200.0 JEANE CAUSEY Sep 29, 2016 13:47
--- NOTE | 2016-09-29 15:04 | NUR ---
DISCHARGE NURSING NOTE PT WAS DISCHARGED FROM THE HOSPITAL AT THIS TIME, VIA WHEELCHAIR FROM THE EMERGENCY ROOM ENTRANCE. PT ALERT AND ORIENTED X3. VITAL SIGNS STABLE, ON RA. THIS RN WENT OVER DISCHARGE PAPERWORK WITH THE PT INCLUDING DISCHARGE DIET, ACTIVITY, MEDICATIONS, SCRIPTS, FOLLOW-UP APPOINTMENTS AND INCISION CARE. PT VERBALIZED UNDERSTANDING OF DISCHARGE PAPERWORK. COPIES OF THE SCRIPTS WERE PLACED IN THE PAPER CHART AND THE ORIGINAL WAS SENT WITH THE PT. PT'S IV SITE WAS DISCONTINUED AND THE IDENTIFICATION BAND WAS REMOVED. ALL BELONGINGS SENT WITH THE PT AT TIME OF DISCHARGE, NO CONCERNS NOTED AT TIME OF DISCHARGE.
[2016-09-30] MEDS ORDERED: MILK OF MAGNESIA 30 ML SUSP PO SCH (08:00)
--- NOTE | 2016-09-30 11:02 | NUR ---
ATTEMPTED POST HOSPITAL FOLLOW UP PHONE CALL #1, PATIENT IS SLEEPING, LM WITH MOTHER TO RETURN CALL TO CM.
[2016-09-30] MEDS ORDERED: BISACODYL 10 MG SUPPOSITORY RECTALLY SCH (20:00)
== END 2016-09-29 15:04 | disposition home or self-care (01) | DRG 470 ==
LOC: SRG 05:36
PROVIDERS: ADMIT Orthopaedic Surgery; ATTEND Orthopaedic Surgery
PROC: 0SRB04A Replacement of Left Hip Joint with Ceramic on Polyethylene Synthetic Substitute, Uncemented, Open Approach (ICD-10-PCS; principal; 2016-09-28 07:48)
DX: M16.12 Unilateral primary osteoarthritis, left hip (principal); Z68.42 Body mass index [BMI] 45.0-49.9, adult; G47.33 Obstructive sleep apnea (adult) (pediatric); D64.9 Anemia, unspecified; Z96.641 Presence of right artificial hip joint; Z96.651 Presence of right artificial knee joint; I10 Essential (primary) hypertension; R73.03 Prediabetes; K21.9 Gastro-esophageal reflux disease without esophagitis; Z99.89 Dependence on other enabling machines and devices
CPT/HCPCS: 36415; 80048; 82948; 85027